=== PATIENT | female | born 1970 | race African-American/Black ===

== ENCOUNTER 2021-04-18 14:44 | Outpatient (CLI) | payer BC, SELFPAY ==
--- NOTE | ~2021-04-18 | XR_ITS ---
EXAMINATION: XR chest 2V DATE: 04/18/2021 15:14 INDICATION: Cough. TECHNIQUE: Frontal and lateral views of the chest were obtained. COMPARISON: Chest 2 views 10/09/2017 FINDINGS: The chest demonstrates clear lungs without pneumonia, pleural effusion, or pneumothorax. Th e heart size is normal. IMPRESSION: 1. No acute cardiopulmonary disease. Reviewed, dictated and finalized at location A.
== END 2021-04-18 14:45 | disposition home or self-care (01) ==
LOC: ANHIMG 14:48
PROVIDERS: PCP Internal Medicine; Visit Provider Nurse Practitioner
DX: R05 Cough (principal)
CPT/HCPCS: 71046

== ENCOUNTER 2021-08-24 09:20 | Outpatient (CLI) | payer BC, SELFPAY ==
--- NOTE | ~2021-08-24 | MM_ITS ---
EXAMINATION: MM screening [facility] HISTORY: Screening TECHNIQUE: Craniocaudal and mediolateral oblique 3-D tomosynthesis images were obtained and synthetic 2-D images were generated. CAD analysis was submitted and interpreted. COMPARISON: Comparison to multiple prior studies sequentially, with oldest reviewed study dated 07/17. BREAST PARENCHYMAL COMPOSITION: Breast composed of scattered areas of fibroglandular density. FINDINGS: There is no evidence of suspicious mass, calcification, or architectural distortion to sugg est malignancy in either breast. There has been no suspicious interval change. IMPRESSION: 1. No mammographic evidence of malignancy. 2. Recommend routine screening mammography in one year. BI-RADS Category 1: Negative Reviewed, dictated and finalized at location A. 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
== END 2021-08-24 09:21 | disposition home or self-care (01) ==
PROVIDERS: PCP Internal Medicine; Visit Provider Obstetrics & Gynecology
DX: Z12.31 Encounter for screening mammogram for malignant neoplasm of breast (principal)
CPT/HCPCS: 77063; 77067

== ENCOUNTER 2023-02-20 02:27 | Day surgery (SDC) | payer BC, SELFPAY ==
[2023-02-11 09:24] VITALS: BMI 39.5
--- NOTE | 2023-02-20 06:59 | PM.HPGS ---
History of Present Illness History of Present Illness Consent: Risks, benefits, and alternatives have been discussed and questions answered. Patient agrees to proceed with procedure. Chief complaint: neoplasm screening Narrative: Yvonne Rodriguez is a 52 year old female Referred for colon cancer screening. Review of Systems Review of Systems: All systems reviewed & are unremarkable except as noted in HPI and below PMFSH Past Medical History Medical History Anemia BMI 39.0-39.9,adult Degenerative arthritis of knee, bilateral High cholesterol Vaginal delivery x 4 Surgical History Surgical History H/O knee surgery scope, waiting on record History of abdominoplasty History of hysterectomy, supracervical History of tubal ligation Previous section Family History Family History Mother Family history of elevated blood lipids Cerebrovascular accident Family history of diabetes mellitus in first degree relative Diabetes mellitus Hypertension Grandparent Cerebrovascular accident Father Family history of pulmonary embolism Patient's father is Family history of congestive heart failure, Onset Age: 52 Other Family history of malignant neoplasm of ovary Social History Social History Smoking status: Never smoker Second hand tobacco smoke exposure: No Alcohol intake: current Alcohol use details: rarely, glass of wine Substance use: never Substance use type: does not use Living arrangements: with family Occupation/Education: occupation Additional occupation/education comments: [employer] Gender identity (if verbalized by the patient): Female Spiritual care concerns: No Meds Home Medications and Allergies Home Medications Medication Instructions Recorded Confirmed Type multivitamin with minerals 1 tablet PO DAILY 10/10/19 02/11/23 History (Hair,Skin and Nails tablet) atorvastatin 10 mg tablet 10 mg PO QHS #90 tabs 11/21/22 02/11/23 Rx Allergies Allergy/AdvReac Type Severity Reaction Status Date / Time No Known Allergies Allergy Verified 02/20/23 08:20 Exam Resp: Auscultation: clear to auscultation bilaterally Cardio: Rate: regular rate Rhythm: regular rhythm GI: GI Palp: Yes Soft to palpation and No Tenderness to palpation present (GI) Assessment and Plan Assessment and plan (1) Screening for colon cancer: Code(s): Z12.11 - Encounter for screening for malignant neoplasm of colon Status: Acute Assessment and Plan: Colonoscopy with possible biopsy or polypectomy or cautery or injection of substances.
[2023-02-20 08:22] VITALS: BP 159/95; PULSE 86; RESP 18; TEMP 36.1; O2SAT 99
[2023-02-20] MEDS: LACTATED RINGERS 1,000 ML 150 ML IV CONT (08:33)
--- NOTE | 2023-02-20 09:14 | WPDANESEPPF ---
Anes - Initial Pre Proc Eval Procedure: Operation Date: 02/20/23 09:30 Proposed Procedures p Screening Colonoscopy - Santos Haque MD Date/Time: 02/20/23 09:14 Surgeon: Santos Haque MD Pre Op Diagnosis: neoplasm screening Patient Data Age: 52 Gender: F Height: 1.63 m Weight: 104.3 kg Last Vital Signs Temp 96.9 F L 02/20/23 08:22 Pulse 86 02/20/23 08:22 Resp 18 02/20/23 08:22 BP 159/95 H 02/20/23 08:22 Pulse Ox 99 02/20/23 08:22 O2 Del Method Room Air 02/20/23 08:22 Allergies Allergy/AdvReac Type Severity Reaction Status Date / Time No Known Allergies Allergy Verified 02/20/23 08:20 Home Medications Medication Instructions Recorded Confirmed Type multivitamin with minerals 1 tablet PO DAILY 10/10/19 02/11/23 History (Hair,Skin and Nails tablet) atorvastatin 10 mg tablet 10 mg PO QHS #90 tabs 11/21/22 02/11/23 Rx Patient hx anesthesia problems: none Family hx anesthesia problems: none Results Review: All pre-operative results and documents have been reviewed as part of the pre-operative evaluation. [facility] Past Medical History Medical History Anemia BMI 39.0-39.9,adult Degenerative arthritis of knee, bilateral High cholesterol Vaginal delivery x 4 Surgical History Surgical History H/O knee surgery scope, waiting on record History of abdominoplasty History of hysterectomy, supracervical History of tubal ligation Previous section Family History Family History Mother Family history of elevated blood lipids Cerebrovascular accident Family history of diabetes mellitus in first degree relative Diabetes mellitus Hypertension Grandparent Cerebrovascular accident Father Family history of pulmonary embolism Patient's father is Family history of congestive heart failure, Onset Age: 52 Other Family history of malignant neoplasm of ovary Social History Social History Smoking status: Never smoker Second hand tobacco smoke exposure: No Alcohol intake: current Alcohol use details: rarely, glass of wine Substance use: never Substance use type: does not use Living arrangements: with family Occupation/Education: occupation Additional occupation/education comments: [employer] Gender identity (if verbalized by the patient): Female Spiritual care concerns: No Anes - Eval Final PreProcedure Day of Procedure 02/20/23 09:14 Patient weight: morbidly obese Heart: regular rate and rhythm Lungs: clear to auscultation Airway: Mallampati scale class III Neurological: alert and oriented Last oral intake: >/= 8 hours ASA classification: III Emergent: no Anesthetic plan: proceed Anesthesia type and monitoring: general GIVS and standard monitoring Results Review: All pre-operative results and documents have been reviewed as part of the pre-operative evaluation. Informed Consent: The patient's anesthetic plan and its attendant risks and benefits were discussed with the patient/family/POA. Questions were solicited and answers provided to the satisfaction of the patient/family/POA.
[2023-02-20 09:51] VITALS: BP 136/91; PULSE 92; RESP 17; O2SAT 100
[2023-02-20 10:01] VITALS: BP 138/84; PULSE 75; RESP 19; O2SAT 100
[2023-02-20 10:11] VITALS: BP 144/91; PULSE 70; RESP 15; O2SAT 100
== END 2023-02-20 10:22 | disposition home or self-care (01) ==
PROVIDERS: PCP Internal Medicine; Visit Provider Internal Medicine Gastroenterology
PROC: 0DJD8ZZ Inspection of Lower Intestinal Tract, Via Natural or Artificial Opening Endoscopic (ICD-10-PCS; CPT 45378; principal; 2023-02-20 09:30)
DX: Z12.11 Encounter for screening for malignant neoplasm of colon (principal); E78.00 Pure hypercholesterolemia, unspecified; E66.01 Morbid (severe) obesity due to excess calories; Z68.39 Body mass index [BMI] 39.0-39.9, adult
CPT/HCPCS: 45378; J2704; J7120

== ENCOUNTER → 2023-08-12 09:40 | Outpatient (CLI) | payer BC, SELFPAY ==
--- NOTE | ~2023-08-12 | XR_ITS ---
EXAMINATION: XR chest 2V 08/12/2023 10:43 INDICATION: Cough PROCEDURE: 2 view chest COMPARISON: 04/18/2021 FINDINGS: The lungs are clear. The cardiomediastinal silhouette is within normal limits. There are no pleural effusions. There is no pneumothorax suspected. IMPRESSION: 1: NO ACUTE CARDIOPULMONARY DISEASE. Reviewed, dictated and finalized at location B. 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
== END ==
PROVIDERS: PCP Internal Medicine; Visit Provider Nurse Practitioner
DX: R05.9 Cough, unspecified (principal)
CPT/HCPCS: 71046

== ENCOUNTER 2024-06-14 10:45 | Outpatient (RCR) | payer BC, SELFPAY ==
[2024-06-09 11:03] VITALS: BMI 38.7
[2024-06-09 12:32] VITALS: BMI 38.7
== END 2024-08-29 10:09 | disposition home or self-care (01) ==
LOC: ANHDMC 10:45
PROVIDERS: PCP Internal Medicine; Visit Provider Nurse Practitioner
DX: E11.9 Type 2 diabetes mellitus without complications (principal); Z71.3 Dietary counseling and surveillance
CPT/HCPCS: 97802; G0108

== ENCOUNTER 2025-01-26 08:40 | Outpatient (CLI) | payer BC, SELFPAY ==
--- OUTSIDE RECORDS SUMMARY | 2025-01-26 08:55 | XMS_ITS | Clinical Summary ---
Author Organization [facility] [address] Address [address] [place] [address] Care Team Providers Care Lens Engraver Name Role Phone Brian Branch DO Primary Care Provider [phone] Allergies No known active allergies Medications cyclobenzaprine (FLEXERIL) 10 mg tablet TAKE 1 TABLET 3 TIMES DAILY NEEDED. 8 Active predniSONE (DELTASONE) 50 mg tablet TK 1 T PO QD. TAKE WITH FOOD. DO NOT TAKE ASPIRIN OR NSAIDS WHILE TAKING THIS MEDICATION. 0 8 Active predniSONE (DELTASONE) 10 mg tablet 3 po BID x 4 days; 2 po BID x 3 days; 1 po BID x 3 days. NO NSAIDS 8 Active diazePAM (VALIUM) 2 mg tabletIndicatio ns:Claustrophob ia Take 1 tablet by mouth 1 hour prior MRI, 1 tablet by mouth 30 minutes prior MRI, and an additional 1 tablet by mouth at time of MRI PRN 3 tablet 9 Active Active Problems Problem Noted Date Diagnosed Date Lumbago 10/09/2014 Surgical History Surgery Date Site/Laterality Comments FL FLUORO GUIDED LUMBAR PUNCTURE 10/04/2018 Right FL FLUORO GUIDED LUMBAR PUNCTURE 02/03/2019 Right [place] FLUORO GUIDED LUMBAR PUNCTURE 07/26/2019 Right [place] FLUORO GUIDED LUMBAR PUNCTURE 10/25/2019 Right Social History Tobacco Use Types Packs/Day Years Used Date Smoking Tobacco: Never Smokeless Tobacco: Never Comments Unknown Sex and Gender Information Value Date Recorded Sex Assigned at Not on file 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 Gender Identity Not on file Sexual Orientation Not on file Obstetrics History Last Filed Vital Signs Vital Sign Reading Time Taken Comments Blood Pressure 139/91 10/25/2019 2:33 PM CDT Pulse 70 10/25/2019 2:33 PM CDT Temperature 36.3 C (97.4 F) 11/23/2018 6:46 PM CDT Respiratory Rate 18 10/25/2019 2:33 PM CDT Oxygen Saturation 98% 10/25/2019 2:33 PM CDT Inhaled Oxygen Concentration - - Weight 101.6 kg (224 lb) 11/23/2018 6:46 PM CDT Height 162.6 cm (5' 4) 11/23/2018 6:46 PM CDT Body Mass Index 38.45 11/23/2018 6:46 PM CDT Plan of Treatment Not on file Insurance [employer]ICE [employer] Care Teams Lens Engraver Relationship Specialty Start Date End Date Brian Branch DO PCP - General Internal Medicine 08/06/17
--- OUTSIDE RECORDS SUMMARY | 2025-01-26 08:55 | XMS_ITS | Clinical Summary ---
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 Gender Identity Not on file Sexual Orientation Not on file Plan of Treatment Health Maintenance Due Date Last Done Comments Hepatitis C Virus (HCV) Screening 1972 TdaP Immunization 1972 Hepatitis B Immunization (1 of 3 - 19+ 3-dose series) 1991 Pap Smear 1993 Cervical Cancer Screening (CCS) 2002 HPV/Cotest 2002 Colonoscopy 2017 Colorectal Cancer Screening 2017 Cologuard 2022 Immunochemical Fecal Occult Blood 2022 Mammogram 2022 Pneumococcal Immunization (5 0+ years) (1 of 1 - PCV) 2022 Zoster Immunization (1 of 2) 2022 Influenza Immunization (#1) 2024 SARS-COV-2 Immunization (3 - 2023- season) 2024 05/30/2021, 05/09/2021 Respiratory Syncytial Virus (RSV) Immunization (Adult) (1 - 1-dose 75+ series) 2047 Meningococcal Immunization (ACWY) Aged Out No longer eligible b ased on patient's age to complete this topic Pneumococcal Immunization Combined Aged Out No longer eligible b ased on patient's age to complete this topic Rotavirus Immunization Aged Out No lo nger eligible based on patient's age to complete this topic
--- OUTSIDE RECORDS SUMMARY | 2025-01-26 08:55 | XMS_ITS | Referral Summary ---
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
--- OUTSIDE RECORDS SUMMARY | 2025-01-26 08:55 | XMS_ITS | Continuity of Care Document ---
Author Organization [facility] Address [address] [place] [address] Phone Care Team Providers Care Sourcing Specialist Name Role Phone Unavailable Unavailable Unavailable Medications Medication Instructions Dosage Effective Dates (start - stop) Status Comments Naprosyn 500 mg Tab 1 tab PO BID - Act raquel Procedures Procedure Date Office/outpatient visit[place] [place] [place]patient visit[place] [place] [place] visit[place] [place] [place] Postop followup visit Postop followup visit Postop followup visit Disability Form Knee Arthroscopy W/ Lateral Release Knee arthroscopy/arthroplasty 0 Office/outpatient visit,[facility] 2009 Advance Directives Directive Yes / No Effective Date File Name No Information Encounters Encounter Description Practice Location Reason(s) For Visit Diagnoses Date Provider Providers Copied on Encounter Office/outpa tient visit,est, [facility], [address], [id number], [place] tel:[phone] [facility] CHONDROMALACIA PATELLAERECUR DISLOCAT-L/LEG 1 No Information Referring Provider: Jose Love, [address] [place] [address], [place], [address] . tel:[phone] Office/outpa tient visit,est, [facility], [address], [id number], [place] tel:[phone] [facility] RECUR DISLOCAT-L/LEG CHONDROMALACIA PATELLAE 1 No Information Referring Provider: Jose Love, [address] [place] [address], [address] . tel:[phone] Office/outpa tient visit,est, [facility], [address] [address], [place], [place], [id number], [place] tel:[phone] [facility] CHONDROMALACIA PATELLAERECUR DISLOCAT-L/LEG 1 No Information Referring Provider: Jose Love, [address] [place] [address], [address] . tel:[phone] [facility], [address] [address], [place], [place], [id number], [place] tel:[phone] [facility] RECUR DISLOCAT-L/LEG CHONDROMALACIA PATELLAE 0 No Information Referring Provider: Jose Love, [address] [place] [address], [address] . tel:[phone] [facility], [address] [address], [place], [place], [id number], [place] tel:[phone] [facility] CHONDROMALACIA PATELLAERECUR DISLOCAT-L/LEG 0 No Information Referring Provider: Jose Love, [address] [place] [address], [address] . tel:[phone] [facility], [address] [address], [place], [place], [id number], [place] tel:[phone] [facility] CHONDROMALACIA PATELLAE 0 No Information Referring Provider: Jose Love, [address] [place] [address], [address] . tel:[phone] [facility], [address] [address], [place], [place], [id number], [place] tel:[phone] [facility] No Information 0 No Information Referring Provider: Jose Love, [address] [place] [address], [address] . tel:[phone] [facility], [address], [id number], tel:[phone] [facility] RECUR DISLOCAT-L/LEG CHONDROMALACIA PATELLAE 0 No Information Referring Provider: Jose Love, [address] [place] [address], [address] . tel:[phone] Office/outpa tient visit,[facility], [address], [id number], tel:[phone] [facility] No Information 0 No Information Referring Provider: Jose Love, [address] [place] [address], [address] . tel:[phone] Family History Family Member Type Diagnosis Age At Onset No Information Payers Payer name Insurance type Covered libertarian ID Authorpeñaa judi(s) Nataly Blue Cross Blue Shiel d [facility] [id number] Social History Type Description Quantity Date Captured Comments Sex Female Smoking Status No Information Chief Complaint And Reason For Visit No Information Reason For Referral Reason For Referral No Information History Of Present Illness Encounter Date Complaint History Of Prese nt Illness No Information Functional Status Date Functional Assessmen t No Information Instructions Date Instruction Additional Infor mation No Information Assessments Type Assessment Date No Information Patient Care Teams Name Effective Dates (start - stop) Status Members No Information
--- OUTSIDE RECORDS SUMMARY | 2025-01-26 08:55 | XMS_ITS | Clinical Summary ---
Author Organization [facility] Address [address] [place] [address] Care Team Providers Care Accounts Payable Lead Name Role Phone Unavailable Primary Care Provider Unavailabl e Source Comments [facility],non-owned Affiliates and Associated Physician Practices is amultiple site organization consisting of ambulatory clinics and hospital sitesin [place], [place], [place] and [place]. This disclosure is being madepursuant to the Care Everywhere program and may not contain all information available regarding this patient. Last updated 18.[facility] Medical Envelope Social History Tobacco Use Types Packs/Day Years Used Date Smoking Tobacco: Never Assessed Comments Unknown Sex and Gender Information Value Date Recorded Sex Assigned at Not on file Legal Sex Female 2:22 PM CDT Gender Identity Not on file Sexual Orientation Not on file Plan of Treatment Health Maintenance Due Date Last Done Comments COLOGUARD (AGES 45-75) - COL ON CA SCREENING 1972 COLON MONITORING 1972 COLONOSCOPY - COLON CA SCREENING 1972 CT COLONOGRAPHY - COLON CA SCREENING 1972 Colorectal Cancer Screening 1972 FIT - COLON CA SCREENING 1972 FLEX SIG - COLON CA SCREENING 1972 LIPID TESTING 1972 MAMMOGRAM 1972 HIV SCREENING 1987 HEPATITIS C SCREENING 06/16/1990 DTAP/TDAP/TD VACCINES (1 - Tdap) 1991 HEPATITIS B VACCINE (1 of 3 - 19+ 3-dose series) 1991 PNEUMOCOCCAL VACCINE 50+ (1 of 1 - PCV) 2022 ZOSTER VACCINE (1 of 2) 2022 COVID-19 VACCINE (1 - 2023-2 5 season) 2024 DEPRESSION SCREENING 08/17/2024 INFLUENZA VACCINE (Season Ended) 2025 HIB VACCINE Aged Out No longer eligi ble based on patient's age to complete this topic HPV VACCINE Aged Out No longer eligi ble based on patient's age to complete this topic MENINGOCOCCAL (Group B) VACC INE SHARED DECISION-MAKING Aged Out No longer eligibl e based on patient's age to complete this topic MENINGOCOCCAL GROUPS A/C/Y/W VACCINE Aged Out No longer eligible b ased on patient's age to complete this topic
[2025-01-26 20:11] LABS: Creatinine Urine 335.3 mg/dL
[2025-01-26 20:18] LABS: MALB Creatinine Ratio 5.6 mg/g (0-30); Microalbumin Urine Random 18.8 mg/L (0-16.7)
== END 2025-01-26 08:41 | disposition home or self-care (01) ==
LOC: ANHGOSHLAB 08:41
PROVIDERS: PCP Internal Medicine; Visit Provider Nurse Practitioner
DX: E11.9 Type 2 diabetes mellitus without complications (principal)
CPT/HCPCS: 82043

== ENCOUNTER 2025-01-26 08:47 | Outpatient (CLI) | payer BC, SELFPAY ==
--- NOTE | ~2025-01-26 | XR_ITS ---
Lumbosacral Spine: AP and lateral views Clinical History: Pain Findings: The normal lordotic curve is maintained. The vertebral bodies and posterior elements are i ntact. The intervertebral disc spaces are preserved. There is mild facet arthropathy at the lower stephanie mbar spine. The sacroiliac joints are normally outlined. Impression: Mild facet arthropathy at the lower lumbar spine. Reviewed, dictated and finalized at location . Impression: Mild facet arthropathy at the lower lumbar spine.
== END 2025-01-26 08:48 | disposition home or self-care (01) ==
LOC: GOSHIMG 08:48
PROVIDERS: PCP Nurse Practitioner; Visit Provider Nurse Practitioner
DX: M47.816 Spondylosis without myelopathy or radiculopathy, lumbar region (principal)
CPT/HCPCS: 72110

== ENCOUNTER 2025-03-02 15:54 | Outpatient (CLI) | payer BC, SELFPAY ==
--- NOTE | ~2025-03-02 | MM_ITS ---
EXAMINATION: MM screening vicki BI w michael HISTORY: Screening TECHNIQUE: Craniocaudal and mediolateral oblique 3-D tomosynthesis images were obtained and synthetic 2-D images were generated. CAD analysis was submitted and interpreted. COMPARISON: Comparison to multiple prior studies sequentially, with oldest reviewed study dated 10/06. BREAST PARENCHYMAL COMPOSITION: Not dense: There are scattered areas of fibroglandular density. FINDINGS: There is no evidence of suspicious mass, calcification, or architectural distortion to sugg est malignancy in either breast. There has been no suspicious interval change. IMPRESSION: 1. No mammographic evidence of malignancy. 2. Recommend routine screening mammography in one year. BI-RADS Category 1: Negative Reviewed, dictated and finalized at location B.
--- OUTSIDE RECORDS SUMMARY | 2025-03-02 15:57 | XMS_ITS | Continuity of Care Document ---
Author Organization [facility] Address [address] [place] [address] Phone Care Team Providers Care Septic Tank Service Technician Name Role Phone Unavailable Unavailable Unavailable Medications Medication Instructions Dosage Effective Dates (start - stop) Status Comments Naprosyn 500 mg Tab 1 tab PO BID - Act raquel Procedures Procedure Date Office/outpatient visit,[facility] [place] 2010 Office/outpatient visit,[facility] [place] 2010 Office/outpatient visit,[facility] [place] 2010 Postop followup visit Postop followup visit Postop followup visit Disability Form Knee Arthroscopy W/ Lateral Release Knee arthroscopy/arthroplasty 0 Office/outpatient visit,[facility] 2009 Advance Directives Directive Yes / No Effective Date File Name No Information Encounters Encounter Description Practice Location Reason(s) For Visit Diagnoses Date Provider Providers Copied on Encounter Office/outpa tient visit,est, [email or web address], [address], [id number], [place] tel:[phone] [facility] CHONDROMALACIA PATELLAERECUR DISLOCAT-L/LEG 1 No Information Referring Provider: Jose Love, [address] [place] [address], [place], [address] . tel:[phone] Office/outpa tient visit,est, [facility], [address], [id number], [place] tel:[phone] [email or web address] RECUR DISLOCAT-L/LEG CHONDROMALACIA PATELLAE 1 No Information Referring Provider: Jose Love, [address] [place] [address], [address] . tel:[phone] Office/outpa tient visit,est, [facility], [address] [address], [place], [place], [id number], [place] tel:[phone] [email or web address] CHONDROMALACIA PATELLAERECUR DISLOCAT-L/LEG 1 No Information Referring Provider: Jose Love, [address] [place] [address], [address] . tel:[phone] [facility], [address] [address], [place], [place], [id number], [place] tel:[phone] [email or web address] RECUR DISLOCAT-L/LEG CHONDROMALACIA PATELLAE 0 No Information Referring Provider: Jose Love, [address] [place] [address], [address] . tel:[phone] [facility], [address] [address], [place], [place], [id number], [place] tel:[phone] [email or web address] CHONDROMALACIA PATELLAERECUR DISLOCAT-L/LEG 0 No Information Referring Provider: Jose Love, [address] [place] [address], [address] . tel:[phone] [facility], [address] [address], [place], [place], [id number], [place] tel:[phone] [email or web address] CHONDROMALACIA PATELLAE 0 No Information Referring Provider: Jose Love, [address] [place] [address], [address] . tel:[phone] [facility], [address] [address], [place], [place], [id number], [place] tel:[phone] [facility] No Information 0 No Information Referring Provider: Jose Love, [address] [place] [address], [address] . tel:[phone] [email or web address], [address], [id number], tel:[phone] [facility] RECUR DISLOCAT-L/LEG CHONDROMALACIA PATELLAE 0 No Information Referring Provider: Jose Love, [address] [place] [address], [address] . tel:[phone] Office[facility]outpa [facility]ient visit,[email or web address], [address], [id number], tel:[phone] [employer] [facility] No Information 0 No Information Referring Provider: Jose Love, [address] [place] [address], [address] . tel:[phone] Family History Family Member Type Diagnosis Age At Onset No Information Payers Payer name Insurance type Covered alliance party ID Authorpeñaa judi(s) Nataly Blue Cross Blue Shiel d [facility] [id number] Social History Type Description Quantity Date Captured [...]
--- OUTSIDE RECORDS SUMMARY | 2025-03-02 15:57 | XMS_ITS | Clinical Summary ---
Author Organization [facility] Address [address] [place] [address] Care Team Providers Care Abrading Machine Tender Name Role Phone Brian Branch DO Primary Care Provider [phone] Allergies No known active allergies Medications benzonatate (TESSALON) 100 MG capsule TAKE 1 CAPSULE BY MOUTH THREE TIMES DAILY FOR 10 DAYS NEEDED FOR COUGH 07/01/2022 Active Family History Medical History Relation Comments Heart Disease Father Diabetes Mother Hypertension Mother Stroke Mother Relation Status Comments Father Mother Social History Tobacco Use Types Packs/Day Years Used Date Smoking Tobacco: Never Smokeless Tobacco: Never Tobacco Cessation:Counseling Given: Not Answered Alcohol Use Standard Drinks/Week Comments Never 0 (1 standard drink = 0.6 oz pur e alcohol) Comments No Sex and Gender Information Value Date Recorded Sex Assigned at Not on file Legal Sex Female 8:25 PM CDT Gender Identity Not on file Sexual Orientation Not on file Last Filed Vital Signs Vital Sign Reading Time Taken Comments Blood Pressure 137/88 07/13/2022 1:04 PM TRUST OFFICER Pulse 74 07/13/2022 1:04 PM TRUST OFFICER Temperature 36.1 C (97 F) 07/13/2022 1:04 PM TRUST OFFICER Respiratory Rate 18 07/13/2022 1:04 PM TRUST OFFICER Oxygen Saturation 100% 07/13/2022 1:04 PM TRUST OFFICER Inhaled Oxygen Concentration - - Weight 101.2 kg (223 lb) 07/13/2022 1:04 PM TRUST OFFICER Height 162.6 cm (5' 4) 07/13/2022 1:04 PM TRUST OFFICER Body Mass Index 38.28 07/13/2022 1:04 PM TRUST OFFICER Plan of Treatment Health Maintenance Due Date Last Done Comments Colorectal Cancer Screening Colonoscopy (10 Years) 1972 Annual Physical 1975 Hepatitis C 1990 DTaP, Tdap and Td Vaccines ( 1 - Tdap) 1991 Hepatitis B Vaccines (1 of 3 - 19+ 3-dose series) 1991 Mammogram Screening 2012 Pneumococcal Vaccine: 50+ Years (1 of 1 - PCV) 2022 Zoster Vaccines (1 of 2) 2022 COVID-19 Vaccine (4 - 2023-2 5 season) 2024 10/27/2021, 05/30/2021, 05/09/2021 Meningococcal B Vaccine Aged Out No l onger eligible based on patient's age to complete this topic Meningococcal Vaccine Aged Out No belén cris eligible based on patient's age to complete this topic RSV Immunizations Under 20 Months Aged Out No longer eligible b ased on patient's age to complete this topic [place] [address] [place] [address] Care Teams Abrading Machine Tender Relationship Specialty Start Date End Date Brian Branch DO [address] [facility] [address] [address] PCP - General INTERNAL MEDICINE 07/13/22
--- OUTSIDE RECORDS SUMMARY | 2025-03-02 15:58 | XMS_ITS | Data Portability ---
Author Organization [facility], Main Office Address [address] [place] [address] Care Team Providers Care Regional Agronomist Name Role Phone TONY SUAREZ Primary Care Provider TONY SUAREZ Referring Provider Assessment Encounter Date Assessment Date Assessment LastModified by Organization Details LastModified Time 03/22/2024 03/22/2024 53 year old female presents with a chief complaint of persistent knee pain and swelling. She reports having had surgery on the knee several years ago to clean it out. The patient states that the knee has been bothering her significantly, with a current pain level of 3 out of 10. She mentions that taking vitamins seems to provide some relief, as long as she avoids strenuous activities or prolonged walking. The patient can walk for about an hour or two before the knee starts to bother her. 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 The patient has tried Aleve for pain relief but has not taken any other medications recently. She has a history of receiving cortisone injections from her previous doctor, Dr. Akins, who has since retired. The patient denies any history of heart disease, lung disease, or diabetes and reports that she does not smoke. She is currently taking atorvastatin. review of systems per patient questionnaire Physical exam: She does have swelling. Antalgic gait. She has some tenderness over the mediolateral joint line. Range of motion 0-130. - X-rays: Indicate mild to moderate arthritis in the knee, presence of bone spurs under the kneecap, and some joint space narrowing, likely related to previous surgery. 1. Left knee arthritis, mild to moderate - Prescribe meloxicam for anti-inflammator y effect - Recommend physical therapy for strengthening quads and hamstrings, and improving knee mobility - Suggest [id number] topical cream, Voltaren, for additional pain relief - Advise her to continue taking vitamins - Instruct her to ice, elevate, and use a wrap for knee swelling - Schedule follow-up in 6-8 weeks after completion of physical therapy - If symptoms worsen or do not improve, consider cortisone injection as the next step - Knee replacement surgery as a potential long-term option, but not indicated at this time [email or web address] Not available 03/22/2024 17:05:41 Plan of Treatment Reminders Order Date Submit Date Provider Last Modified By Organization Details Last Modified Time Details Appointments None recorded. Lab None recorded. Referral physical therapist referral - EVAL AND TREAT 2023 024 [email or web address] [facility], [facility] [address], [place], [address], 08:07:05 Procedures None recorded. Surgeries None recorded. Imaging XR, knee, 3 view 2023 024 AROLDO [facility] [place], [address], [place], [address], 07:34:43 Medication Orders Mobic 15 mg tablet 2023 024 [email or web address] [id number], [address] [place], [address], 01:36:23 Patient TargetsNo targets recorded. Patient InstructionsNo instructions recorded. Reason for Referral Physical Therapist Referral for Pain of left knee joint EVAL AND TREAT Referring Physician: Tony Velazquez, Orthopedic Surgery, Encounter Date: 03/22/2024 Results Created Date Observation Date Name Description Value Unit Range Abnormal Flag Note LastModifiedBy Organization Detail LastModifiedTime 03/22/20 24 XR, knee, 3 view No observ ation record ed. [email or web address] [facility] [place] [address], [place], [address], 03/22/2024 09:54:17 Result Notes None recorded. Problems Name Problem SNOMED Code Status Onset Date Resolution Date Notes Provider Name and Address Organization Details Recorded Time Pain of left knee joint 3922038667429 07 Active 2023 DUSTY Chiu [facility] [place] [employer] [facility] 09:54:01 Osteoarthri tis of left knee joint 0468861247790 09 Active 2023 Tony Velazquez MD [address] [facility], [facility] [address], [place], [address], [facility] [employer] 17:05:16 Problem Notes None recorded. Procedures Surgical History Date Name Laterality Status Provider Name and Address Organization Details Recorded Time Hysterectomy completed DUSTY Chiu [employer] 03/22/2024 09:53:24 Knee Surgery completed DUSTY Chiu [facility] [employer] 03/22/2024 09:55:34 Imaging Results None recorded. Procedure Notes None recorded. Medical Equipment None Reported. Medications Name Sig Start Date Stop Date Status Note LastModified by Organization Details LastModified Time cyclobenzap rine 10 mg tablet TAKE 1 TABLET BY MOUTH THREE TIMES A DAY NEEDED FOR 7 DAYS active Not Available Not Available No t Available prednisone 10 mg tablet TAKE 1 TABLET BY MOUTH TWICE A DAY FOR 5 DAYS 03/22 completed Not Available Not Available Not Available atorvastati n 20 mg tablet TAKE 1 TABLET BY MOUTH EVERY DAY AT BEDTIME active Not Available Not Available No t Available atorvastati n 10 mg tablet TAKE 1 TABLET EVERY DAY AT BEDTIME-C ALL FOR APPOINTME NT 03/22 completed Not Available Not Available Not Available fluconazole 150 mg tablet TAKE 1 TABLET BY MOUTH NEEDED. MAY REPEAT IN 72 HOURS IF SYMPTOMS PERSIST. 03/22 completed Not Available Not Available Not Available benzonatate 200 mg capsule TAKE 1 CAPSULE BY MOUTH THREE TIMES A DAY FOR 10 DAYS 03/22 completed Not Available Not Available Not Available prednisone 20 mg tablet TAKE 2 TABLETS BY MOUTH EVERY DAY FOR 5 DAYS 03/22 completed Not Available Not Available Not Available metronidazo le 500 mg tablet TAKE 1 TABLET BY MOUTH 2 TIMES A DAY FOR 7 DAYS 03/22 completed Not Available Not Available Not Available sulfamethox azole 800 mg-trimetho prim 160 mg tablet 08/13 completed Not Available Not Available Not Available tramadol 50 mg tablet 08/13 completed Not Available Not Available Not Available Mobic 15 mg tablet Take 1 tablet every day by oral route. 2023 active Not Available Not Available Not Avai lable diazepam 10 mg tablet 08/13 completed Not Available Not Available Not Available amoxicillin 875 mg-russell hernandez clavulanate 125 mg tablet TAKE 1 TABLET ORALLY TWICE A DAY FOR 7 DAYS 03/22 completed Not Available Not Available Not Available cyclobenzap rine 5 mg tablet 08/13 completed Not Available Not Available Not Available Zipsor 25 mg capsule 08/13 completed Not Available Not Available Not Available Vitals Date Recorded Body height Body mass index (BMI) Body weight Provider Name and Address Organization Details Last Updated DateTime 03/22/2024 162.56 cm 40.3 kg/m2 877362.21 g DUSTY Chiu [employer] [facility] [employer] 03/22/2024 09:50:52 Social History Question Answer Notes LastModified by Organizat ion Details LastModified Time Tobacco Smoking Status Unknown If Ever Smoked DUSTY Chiu [facility] [employer] [facility] [employer] 03/22/2024 09:53:07 What Was The Date Of Your Most Recent Tobacco Screening? 03/22/2024 [email or web address] Information not available 03/22/2024 Sex: Unknown Functional Status Question Answer Note LastModified by Organization D etails LastModified Time What is your level of alcohol consumption? None [email or web address] Information not available 03/22/2024 Mental Status None recorded. Family History Relationship Description Onset Age of this Age Resolved Age Notes LastModified by Organization Details LastModified Time Father Heart disease [email or web address] Not available 2023 09:52:02 Mother Hypertensive disorder Not available 2023 09:52:11 Mother Diabetes mellitus [email or web address] Not available 2023 09:52:21 Mother Kidney disease [email or web address] Not available 2023 09:52:38 Mother Family history of stroke [email or web address] Not available 2023 09:52:51 Medical History No medical history recorded. Gynecological HistoryNo gynecological history recorded. Obstetrics History GPAL:G 0 P 0 0 0 0 Past Encounters Encounter ID Performer Location Encounter Start Date Encounter Closed Date Diagnosis/Indication Diagnosis SNOMED-CT Code Diagnosis ICD10 Code Diagnosis Note [id number] Tony Velazquez MD [facility] [address] [place] [address] 03/22/2024 09:35:02 03/22/2024 10:38:53 Pain of left knee joint 2679739965 29697 M25.562 Osteoarthr itis of left knee joint 9208515583 88660 M17.12 Health Concerns Section Related Observation LastModified by Organization Detai ls LastModified Time None Recorded Concern Status LastModified by Organization Details LastModified Time None Recorded Advance Directives Directive None Recorded Payers Insurance Date Sequence Insurance Name Policy Number Policy Ortiz Covered Member ID Ortiz Member ID Guarantor Name 03/24/2024 1 [place] [id number] 2 Yvonne Rodriguez [id number] Yvonne Rodriguez 03/24/2024 1 [place] [facility] [id number] Yvonne Rodriguez [id number] Yvonne Rodriguez OBGyn Episode No OBEpisode recorded.
--- OUTSIDE RECORDS SUMMARY | 2025-03-02 15:58 | XMS_ITS | Clinical Summary ---
Author Organization [facility] [address] Address [address] [place] [address] Care Team Providers Care Fats And Oils Loader Name Role Phone Brian Branch DO Primary Care Provider [phone]- [phone] Allergies No known active allergies Medications cyclobenzaprine [...] on file Legal Sex Female 8:24 AM TRIMMER BUFFING WHEEL Gender Identity Not on file Sexual Orientation [...] 11/23/2018 6:46 PM CDT Plan of Treatment Health Maintenance Due Date Last Done Comments Breast Cancer Screening-Mammogram 1972 Cervical Cancer Screening 1972 Colon Cancer Screening-Colonoscopy 1972 Depression Screening 1972 Hepatitis C Screening 1972 DTaP/Tdap/Td Vaccine (1 - Tdap) 1983 Hepatitis B Screening 1990 Regular Well Visit/Exam 18-64 1990 Zoster Vaccine (1 of 2) 2022 Influenza Vaccine (#1) 2025 Pneumococcal vaccine <65 Aged Out No longer eligible based on patient's age to complete this topic Insurance [facility] ACCESS CHOICE [facility] ACCESS CHOICE Care Teams Fats And Oils Loader Relationship Specialty Start Date End Date Brian Branch DO PCP - General Internal Medicine 08/06/17
--- OUTSIDE RECORDS SUMMARY | 2025-03-02 15:58 | XMS_ITS | Clinical Summary ---
Author Organization [facility] Address [address] [place] [address] Care Team Providers Care Leadership Program Intern Name Role Phone Unavailable Primary Care Provider Unavailabl e Social History Tobacco Use Types Packs/Day Years Used Date Smoking Tobacco: Never Assessed Comments Unknown Sex and Gender Information Value Date Recorded Sex Assigned at Not on file Legal Sex Female 8:37 AM CONE WINDER Gender Identity Not on file Sexual Orientation [...]
--- OUTSIDE RECORDS SUMMARY | 2025-03-02 15:58 | XMS_ITS | Clinical Summary ---
Author Organization [facility] Address [address] [place] [address] Care Team Providers Care Co Founder & Ceo Name Role Phone Unavailable Primary Care Provider Unavailabl e Source Comments [facility],non-owned Affiliates and Associated Physician Practices is amultiple site organization consisting of ambulatory clinics and hospital sitesin [place], [place], [place] and [place]. This disclosure is being madepursuant to the Care Everywhere program and may not contain all information available regarding this patient. Last updated 18.[facility] [employer] Social History Tobacco Use Types Packs/Day Years [...] season) 2024 DEPRESSION SCREENING 08/17/2024 INFLUENZA VACCINE (#1) 2025 HIB VACCINE Aged Out No longer [...]
--- OUTSIDE RECORDS SUMMARY | 2025-03-02 15:58 | XMS_ITS | Referral Summary ---
Author Organization [facility] [address] Address [address] [place] [address] Care Team Providers Care Headrig Sawyer Name Role Phone Brian Branch DO Primary Care Provider +1- [phone] Allergies No known active allergies Medications cyclobenzaprine [...] on file Legal Sex Female 8:24 AM CONCRETE FORM SETTER Gender Identity Not on file Sexual Orientation [...] Plan of Treatment Not on file Insurance [id number] CHOICE Care Teams Headrig Sawyer Relationship Specialty Start Date End Date Brian Branch DO PCP - General Internal Medicine 08/06/17
== END 2025-03-02 15:55 | disposition home or self-care (01) ==
LOC: ANHIMG 15:55
PROVIDERS: PCP Internal Medicine; Visit Provider Obstetrics & Gynecology
DX: Z12.31 Encounter for screening mammogram for malignant neoplasm of breast (principal)
CPT/HCPCS: 77063; 77067